=== PATIENT | male | born 1995 | race Caucasian/White ===

== ENCOUNTER 2019-04-04 12:58 | Emergency (ER) | payer OTHER ==
[~2019-04-04] VITALS: Ht 182.9 cm; Wt 75.2 kg
[~2019-04-04 12:58] MED LIST: IBUP-1542 PO; TAMS-14 PO
[2019-04-04 13:18] VITALS: BP 144/62; PULSE 66; RESP 16; Ht 182.9 cm; Wt 75.2 kg
[2019-04-04] MEDS ORDERED: IBUPROFEN 800 MG TAB PO ONE (15:00)
[2019-04-04] MEDS ORDERED: TAMSULOSIN (SR) 0.4 MG CAP PO ONE (15:00)
== END 2019-04-04 16:07 | disposition home or self-care (01) ==
LOC: FTE 12:58
DX: N50.811 Right testicular pain (principal); N50.812 Left testicular pain
CPT/HCPCS: 76870; 81003; Z7502; Z7610